=== PATIENT | female | born 1995 | race American Indian/Alaskan Native ===

== ENCOUNTER 2017-03-16 14:51 | Emergency (ER) | payer MEDICAID ==
[2017-03-16] MEDS ORDERED: DILAUDID IV ONE (15:38)
--- NOTE | 2017-03-16 15:45 | Emergency Department Report ---
HPI - General Chief Complaint: High BP Time Seen by Provider: 03/16/17 15:27 - HPI HPI: This is a 21-year-old [place]er female presents to the emergency department via EMS from home with complaint of a right-sided headache has been going on since last night and some dizziness that has been going on since yesterday morning. Patient was here last week for a heavier than usual menstrual cycle and at that time was found to have elevated blood pressure. She does have history of preeclampsia and had a back in November of this year. She is on methyldopa for blood pressure. After the visit, she was given a work note to return starting on the 10th, yesterday. She went to work and began feeling dizzy to the point where she had trouble doing her job. She was on her way home and said she started feeling better once she returned home she began having the headache and a return of the dizziness. She denies any vision change , slurred speech or any neurological deficits. She has a past medical history of hypertension. She does not have a primary care physician. Recent travel or sick contacts at home. ED Past Medical Hx - Past Medical History Hx Hypertension: Yes (PIH) Additional medical history: anemia - Surgical History Additional Surgical History: C/S x2 - Social History Smoking Status: Never Smoker Substance Use Type: None - Medications Home Medications: Home Medications Medication Instructions Recorded Confirmed Last Taken Type Methyldopa [Aldomet] 500 mg PO BID #20 tab 03/10/17 Unknown Rx traMADol [Ultram 50 MG tab] 50 mg PO Q6HR PRN #20 tablet 03/10/17 Unknown Rx Amlodipine Besylate [Norvasc] 5 mg PO QDAY #20 tablet 03/16/17 Unknown Rx Ferrous Sulfate [Feosol] 325 mg PO BID #40 tablet 03/16/17 Unknown Rx ED Review of Systems ROS: Stated complaint: HYPERTENSION Other details as noted in HPI Comment: All other systems reviewed and negative Constitutional: denies: chills, fever Eyes: denies: eye pain, eye discharge, vision change ENT: denies: ear pain, throat pain Respiratory: denies: cough, shortness of breath, wheezing Cardiovascular: denies: chest pain, palpitations Gastrointestinal: denies: abdominal pain, nausea, diarrhea Genitourinary: denies: urgency, dysuria, discharge Musculoskeletal: denies: back pain, joint swelling, arthralgia Skin: denies: rash, lesions Neurological: headache, other (dizziness) Physical Exam - Physical Exam Vital Signs: Vital Signs 03/16/17 03/16/17 03/16/17 15:10 15:15 15:26 Temperature 98.7 F Pulse Rate 74 72 Respiratory 13 16 Rate Blood Pressure 174/92 172/77 O2 Sat by Pulse 100 100 100 Oximetry 03/16/17 15:31 Temperature Pulse Rate 73 Respiratory 21 Rate Blood Pressure 157/69 O2 Sat by Pulse 100 Oximetry Physical Exam: GENERAL: The patient is well-developed well-nourished. HENT: Normocephalic. Atraumatic. Patient has moist mucous membranes. EYES: Extraocular motions are intact. Pupils equal reactive to light bilaterally. No nystagmus. NECK: Supple. Trachea is midline. CHEST/LUNGS: Clear to auscultation. There is no respiratory distress noted. HEART/CARDIOVASCULAR: Regular. There is no tachycardia. There is no gallop rub or murmur. ABDOMEN: Abdomen is soft, nontender. Patient has normal bowel sounds. There is no abdominal distention. Obese habitus. SKIN: Skin is warm and dry. NEURO: The patient is awake, alert, and oriented. The patient is cooperative. The patient has no focal neurologic deficits. The patient has normal speech. Cranial nerves II-12 grossly intact. No pronator drift. No dysmetria. MUSCULOSKELETAL: There is no tenderness or deformity. There is no limitation range of motion. There is no evidence of acute injury. ED Course Vital Signs 03/16/17 03/16/17 03/16/17 15:10 15:15 15:26 Temperature 98.7 F Pulse Rate 74 72 Respiratory 13 16 Rate Blood Pressure 174/92 172/77 O2 Sat by Pulse 100 100 100 Oximetry 03/16/17 15:31 Temperature Pulse Rate 73 Respiratory 21 Rate Blood Pressure 157/69 O2 Sat by Pulse 100 Oximetry ED Medical Decision Making - Lab Data Result diagrams: 03/16/17 15:53 03/16/17 15:53 - EKG Data -: EKG Interpreted by Ct EKG shows normal: sinus rhythm, axis, intervals, QRS complexes, ST-T waves ( flattened or borderline inverted T waves throughout the lateral and inferior leads) Rate: normal - EKG Data When compared to previous EKG there are: previous EKG unavailable Interpretation: other (sinus rhythm, no ST elevation NV, flattening or borderline inverted T waves to the lateral and inferior leads) - Radiology Data Radiology results: report reviewed CT of the head does not show any acute intracranial process including no ischemia, shift, mass, bleeding or skull fracture. - Medical Decision Making This patient presented with elevated blood pressure that had reached a systolic of about 200 with EMS. She presents with a right-sided headache that started yesterday as well as some nonspecific dizziness. Physical examination she does not have any focal, motor or sensory deficits in her cranial nerves are intact. CT of the head was done and does not show any bleed, shift, mass or any acute process. Patient's labs are mostly unremarkable except for anemia with hemoglobin of 8.5. She was here 6 days ago for heavy menstrual bleeding and she did not have a CBC at that time so it is unknown whether this hemoglobin is chronic for her or acutely low. If it is a bit changed and it is possible patient's symptoms are secondary to symptomatic anemia. However the patient was given some pain medication and blood pressure medication and upon reevaluation she says she is feeling better. She does not appear pale. Vital signs are stable and cleared him being afebrile and no tachycardia, tachypnea or hypoxia. At this point the patient appears safe for discharge home at this time. She will follow up with a primary care physician to discuss whether or not to continue the methyldopa. However I will start her on a medium dose of Norvasc and iron supplementation. She understands that the iron pills can make her constipated. She will return to the ER with any worsening of her symptoms or any acute distress. Discharge instructions given within the emergency department and all questions have been answered. - Differential Diagnosis anemia, tension headache, migraine, brain bleed Critical Care Time: No Critical care attestation.: If time is entered above; I have spent that time in minutes in the direct care of this critically ill patient, excluding procedure time. ED Disposition Clinical Impression: Dizziness Hypertension Qualifiers: Hypertension type: essential hypertension Qualified Code(s): I10 - Essential ( primary) hypertension Headache Qualifiers: Headache type: unspecified Headache chronicity pattern: unspecified pattern Intractability: not intractable Qualified Code(s): R51 - Headache Anemia Qualifiers: Anemia type: iron deficiency Iron deficiency anemia type: chronic blood loss Qualified Code(s): D50.0 - Iron deficiency anemia secondary to blood loss ( chronic) Disposition: DC-01 TO HOME OR SELFCARE Is pt being admited?: No Condition: Stable Instructions: Iron Rich Diet (ED), Acute Headache (ED), Hypertension (ED), Dizziness (ED), Anemia (ED) Additional Instructions: Please follow up with a primary care doctor in the next few days. Return to the emergency Department with any worsening of your symptoms are any acute distress. Try and stay away from foods that are high in salt and caffeinated products to help with your blood pressure. Keep a blood pressure log. I have started you on a blood pressure medication: Norvasc/amlodipine that is taken once daily, usually in the morning. Return to the emergency Department with any worsening of your symptoms or any acute distress. Prescriptions: Amlodipine Besylate [Norvasc] 5 mg PO QDAY #20 tablet Ferrous Sulfate [Feosol] 325 mg PO BID #40 tablet Referrals: PRIMARY MD MARCY [Primary Care Provider] - 3-5 Days MARC VILLARREAL MD [Staff Physician] - 3-5 Days [facility] [Outside] - 3-5 Days Time of Disposition: 18:04
[2017-03-16 16:24] LABS: Basophils % (Auto) 0.6 % (0.0-1.8); Eosinophils % (Auto) 3.9 % (0.0-4.3); Hematocrit 26.7 % (30.3-42.9); Hemoglobin 8.6 gm/dl (10.1-14.3); Mean Corpuscular HGB Conc 32 % (30-34); Mean Corpuscular Volume 74 fl (79-97); Platelet Count 270 K/mm3 (140-440); Red Blood Count 3.61 M/mm3 (3.65-5.03)
[2017-03-16 16:25] LABS: Mean Corpuscular Hemoglobin 24 pg (28-32)
[2017-03-16 16:47] LABS: Anion Gap 13 mmol/L; BUN/Creatinine Ratio 16; Blood Urea Nitrogen 8 mg/dL (7-17); Calcium 9.3 mg/dL (8.4-10.2); Carbon Dioxide 29 mmol/L (22-30); Chloride 101.9 mmol/L (98-107); Glucose 91 mg/dL (65-100); Potassium 4.1 mmol/L (3.6-5.0); Sodium 140 mmol/L (137-145)
[2017-03-16] MEDS ORDERED: APRESOLINE IV ONE (17:15)
--- NOTE | 2017-03-16 17:28 | Cat Scan Report ---
FINAL REPORT EXAM: CT HEAD/BRAIN WO CON HISTORY: HOPE TECHNIQUE: Standard unenhanced CT of the head at 5.0 millimeter axial increments PRIORS: None. FINDINGS: The ventricular system is normal in size and configuration. There is no evidence for parenchymal volume loss. There is no evidence for mass lesion, mass effect, midline shift, acute intracranial hemorrhage, or acute ischemia/ infarction. Visualized paranasal sinuses are clear. IMPRESSION: Negative CT of the head. No acute intracranial process noted.
[2017-03-16 18:06] VITALS: BP 146/69
== END 2017-03-16 18:19 | disposition home or self-care (01) ==
LOC: ED 14:51
DX: R42 Dizziness and giddiness (principal); I10 Essential (primary) hypertension; R51 Headache; D50.0 Iron deficiency anemia secondary to blood loss (chronic); D64.9 Anemia, unspecified
CPT/HCPCS: 36415; 70450; 80048; 84443; 84703; 85025; 93005; 93010; 96374; 96375; 99284; J0360; J1170

== ENCOUNTER 2017-08-08 17:43 | Emergency (ER) | payer MEDICAID ==
[2017-08-08] MEDS ORDERED: TYLENOL PO ONE (18:09)
--- NOTE | 2017-08-08 18:41 | Emergency Department Report ---
ED Headache HPI - General Chief Complaint: Headache Stated Complaint: CHEST PAIN Time Seen by Provider: 08/08/17 18:13 Source: patient, old records Exam Limitations: no limitations - History of Present Illness Initial Comments: 22-year-old female with a past medical history of hypertension, anemia, and preeclampsia with 2 previous pregnancies presents to the hospital concerned she might be preeclamptic currently. She is currently 15 weeks . She complains of a frontal headache that is constant since yesterday a rate of 9/10 in intensity. "Mild blurred vision" reported. No present nausea, vomiting, focal weakness, or numbness. Patient also has had upper mid chest pain described as something sitting on her chest with shortness of breath. Patient is currently on medications for hypertension. Patient also was her baby checked. Her COMPUTER ENGINEERING TECHNOLOGIST doctor is Dr. Austin galvan Allergies/Adverse Reactions: Allergies No Known Allergies Allergy (Unverified 03/10/17 12:31) Home Medications: Ambulatory Orders Methyldopa [Aldomet] 500 mg PO BID #20 tab 03/10/17 traMADol [Ultram 50 MG tab] 50 mg PO Q6HR PRN #20 tablet 03/10/17 Amlodipine Besylate [Norvasc] 5 mg PO QDAY #20 tablet 03/16/17 Ferrous Sulfate [Feosol] 325 mg PO BID #40 tablet 03/16/17 ED Review of Systems ROS: Stated complaint: CHEST PAIN Other details as noted in HPI Comment: All other systems reviewed and negative ED Past Medical Hx - Past Medical History Hx Hypertension: Yes (PIH) Additional medical history: anemia - Surgical History Additional Surgical History: C/S x2 - Social History Smoking Status: Unknown if ever smoked Substance Use Type: None - Medications Home Medications: Home Medications Medication Instructions Recorded Confirmed Last Taken Type Methyldopa [Aldomet] 500 mg PO BID #20 tab 03/10/17 Unknown Rx traMADol [Ultram 50 MG tab] 50 mg PO Q6HR PRN #20 tablet 03/10/17 Unknown Rx Amlodipine Besylate [Norvasc] 5 mg PO QDAY #20 tablet 03/16/17 Unknown Rx Ferrous Sulfate [Feosol] 325 mg PO BID #40 tablet 03/16/17 Unknown Rx ED Physical Exam - General Limitations: No Limitations - Other Other exam information: General: No limitations, patient is alert in no acute distress Head exam: Atraumatic, normocephalic Eyes exam: Normal appearance, ENT: Moist mucous membrane, normal oropharynx Neck exam: Normal inspection, full range of motion, no meningismus nontender Respiratory exam: Clear to auscultation bilateral, no wheezes, rales, crackles Cardiovascular: Normal rate and rhythm, normal heart sounds chest wall nontender Abdomen: Soft, nondistended, and nontender, with normal bowel sounds, no rebound, or guarding Extremity: Full range of motion normal inspection no deformity Back: Normal Inspection, full range of motion, no tenderness Neurologic: Alert, oriented x3, cranial nerves intact, no motor or sensory deficit Psychiatric: normal affect, normal mood Skin: Warm, dry, intact ED Course Vital Signs 08/08/17 08/08/17 08/08/17 17:49 17:57 18:00 Temperature 97.8 F Pulse Rate 78 83 Respiratory 14 19 15 Rate Blood Pressure 143/83 140/81 Blood Pressure 143/83 [Left] O2 Sat by Pulse 100 100 Oximetry 08/08/17 08/08/17 08/08/17 18:15 18:18 18:30 Temperature Pulse Rate 88 90 Respiratory 23 19 17 Rate Blood Pressure 145/80 127/73 Blood Pressure [Left] O2 Sat by Pulse 100 100 100 Oximetry 08/08/17 08/08/17 08/08/17 18:45 19:00 19:05 Temperature 98.8 F Pulse Rate 81 88 87 Respiratory 20 13 16 Rate Blood Pressure 147/64 132/74 Blood Pressure 132/74 [Left] O2 Sat by Pulse 100 100 100 Oximetry 08/08/17 08/08/17 08/08/17 19:16 19:30 20:10 Temperature Pulse Rate 89 81 Respiratory 22 18 Rate Blood Pressure 141/64 148/85 148/85 Blood Pressure [Left] O2 Sat by Pulse 100 100 99 Oximetry 08/08/17 08/08/17 08/08/17 20:15 20:30 20:46 Temperature Pulse Rate 92 H 81 83 Respiratory 17 12 21 Rate Blood Pressure 138/94 151/71 146/67 Blood Pressure [Left] O2 Sat by Pulse 100 100 100 Oximetry 08/08/17 08/08/17 08/08/17 21:00 21:16 21:48 Temperature Pulse Rate 84 94 H 101 H Respiratory 18 16 Rate Blood Pressure 157/78 150/85 157/78 Blood Pressure [Left] O2 Sat by Pulse 100 100 Oximetry 08/08/17 08/08/17 08/08/17 22:00 22:16 22:30 Temperature Pulse Rate 93 H 87 92 H Respiratory 19 18 16 Rate Blood Pressure 107/66 137/64 137/64 Blood Pressure [Left] O2 Sat by Pulse 100 100 100 Oximetry 08/08/17 08/08/17 08/08/17 22:46 23:00 23:16 Temperature Pulse Rate 93 H 79 91 H Respiratory 17 11 L 13 Rate Blood Pressure 137/64 137/64 136/63 Blood Pressure [Left] O2 Sat by Pulse 100 100 99 Oximetry 08/08/17 23:22 Temperature Pulse Rate 89 Respiratory Rate Blood Pressure 136/63 Blood Pressure [Left] O2 Sat by Pulse Oximetry - Reevaluation(s) Reevaluation #1: 08/08/17 23:31 Patient feeling better. Tylenol helped with headache. No distress noted. Tolerating by mouth intake and prefers to drink fluids instead of waiting for her IV fluids to be complete - Consultations Consultation #1: 08/08/17 22:[address] Moore on-call physician for [facility]. Pt will be provided copy of labs/ct/xray report to take for follow up. ED Medical Decision Making - Lab Data Result diagrams: 08/08/17 18:38 08/08/17 18:38 Lab Results 08/08/17 08/08/17 08/08/17 Range/Units 18:38 18:38 18:38 WBC 7.9 (4.5-11.0) K/mm3 RBC 3.72 (3.65-5.03) M/mm3 Hgb 7.9 L (10.1-14.3) gm/dl Hct 24.7 L (30.3-42.9) % MCV 66 L (79-97) fl MCH 21 L (28-32) pg MCHC 32 (30-34) % RDW 19.0 H (13.2-15.2) % Plt Count 281 (140-440) K/mm3 Lymph % (Auto) 24.2 (13.4-35.0) % Victoria % (Auto) 5.1 (0.0-7.3) % Eos % (Auto) 1.6 (0.0-4.3) % Baso % (Auto) 0.4 (0.0-1.8) % Lymph # 1.9 (1.2-5.4) K/mm3 Victoria # 0.4 (0.0-0.8) K/mm3 Eos # 0.1 (0.0-0.4) K/mm3 Baso # 0.0 (0.0-0.1) K/mm3 Seg Neutrophils % 68.7 (40.0-70.0) % Seg Neutrophils # 5.5 (1.8-7.7) K/mm3 PT 12.9 (12.2-14.9) Sec. INR 0.93 (0.87-1.13) APTT 28.4 (24.2-36.6) Sec. D-Dimer 348.41 H (0-234) ng/mlDDU Sodium 134 L (137-145) mmol/L Potassium 3.7 (3.6-5.0) mmol/L Chloride 100.2 (98-107) mmol/L Carbon Dioxide 22 (22-30) mmol/L Anion Gap 16 mmol/L BUN 5 L (7-17) mg/dL Creatinine 0.4 L (0.7-1.2) mg/dL Estimated GFR > 60 ml/min BUN/Creatinine Ratio 13 % Glucose 84 (65-100) mg/dL Calcium 9.0 (8.4-10.2) mg/dL Total Bilirubin 0.20 (0.1-1.2) mg/dL AST 11 (5-40) units/L ALT 8 (7-56) units/L Alkaline Phosphatase 86 (35-129) units/L Total Creatine Kinase (30-135) units/L CK-MB (CK-2) (0.0-4.0) ng/mL CK-MB (CK-2) Rel Index (0-4) Troponin T (0.00-0.029) ng/mL NT-Pro-B Natriuret Pep (0-450) pg/mL Total Protein 6.6 (6.3-8.2) g/dL Albumin 3.4 L (3.9-5) g/dL Albumin/Globulin Ratio 1.1 % Urine Color (Yellow) Urine Turbidity (Clear) Urine pH (5.0-7.0) Ur Specific Valley (1.003-1.030) Urine Protein (Negative) mg/dL Urine Glucose (UA) (Negative) mg/dL Urine Ketones (Negative) mg/dL Urine Blood (Negative) Urine Nitrite (Negative) Urine Bilirubin (Negative) Urine Urobilinogen (<2.0) mg/dL Ur Leukocyte Esterase (Negative) Urine WBC (Auto) (0.0-6.0) /HPF Urine RBC (Auto) (0.0-6.0) /HPF U Epithel Cells (Auto) (0-13.0) /HPF Urine Mucus /HPF 08/08/17 08/08/17 Range/Units 18:38 21:34 WBC (4.5-11.0) K/mm3 RBC (3.65-5.03) M/mm3 Hgb (10.1-14.3) gm/dl Hct (30.3-42.9) % MCV (79-97) fl MCH (28-32) pg MCHC (30-34) % RDW (13.2-15.2) % Plt Count (140-440) K/mm3 Lymph % (Auto) (13.4-35.0) % Victoria % (Auto) (0.0-7.3) % Eos % (Auto) (0.0-4.3) % Baso % (Auto) (0.0-1.8) % Lymph # (1.2-5.4) K/mm3 Victoria # (0.0-0.8) K/mm3 Eos # (0.0-0.4) K/mm3 Baso # (0.0-0.1) K/mm3 Seg Neutrophils % (40.0-70.0) % Seg Neutrophils # (1.8-7.7) K/mm3 PT (12.2-14.9) Sec. INR (0.87-1.13) APTT (24.2-36.6) Sec. D-Dimer (0-234) ng/mlDDU Sodium (137-145) mmol/L Potassium (3.6-5.0) mmol/L Chloride (98-107) mmol/L Carbon Dioxide (22-30) mmol/L Anion Gap mmol/L BUN (7-17) mg/dL Creatinine (0.7-1.2) mg/dL Estimated GFR ml/min BUN/Creatinine Ratio % Glucose (65-100) mg/dL Calcium (8.4-10.2) mg/dL Total Bilirubin (0.1-1.2) mg/dL AST (5-40) units/L ALT (7-56) units/L Alkaline Phosphatase (35-129) units/L Total Creatine Kinase 55 (30-135) units/L CK-MB (CK-2) < 1.0 (0.0-4.0) ng/mL CK-MB (CK-2) Rel Index 1.8 (0-4) Troponin T < 0.010 (0.00-0.029) ng/mL NT-Pro-B Natriuret Pep 166.7 (0-450) pg/mL Total Protein (6.3-8.2) g/dL Albumin (3.9-5) g/dL Albumin/Globulin Ratio % Urine Color Yellow (Yellow) Urine Turbidity Clear (Clear) Urine pH 5.0 (5.0-7.0) Ur Specific Valley 1.060 H (1.003-1.030) Urine Protein <15 mg/dl (Negative) mg/dL Urine Glucose (UA) Neg (Negative) mg/dL Urine Ketones Tr (Negative) mg/dL Urine Blood Neg (Negative) Urine Nitrite Neg (Negative) Urine Bilirubin Neg (Negative) Urine Urobilinogen 2.0 (<2.0) mg/dL Ur Leukocyte Esterase Neg (Negative) Urine WBC (Auto) < 1.0 (0.0-6.0) /HPF Urine RBC (Auto) 3.0 (0.0-6.0) /HPF U Epithel Cells (Auto) 4.0 (0-13.0) /HPF Urine Mucus Few /HPF - EKG Data -: EKG Interpreted by Oh EKG shows normal: sinus rhythm, axis (qrs 50), QRS complexes (qrsd .088s), ST-T waves (no stemi/t inv) Rate: normal (92) - EKG Data When compared to previous EKG there are: previous EKG unavailable - Radiology Data Radiology results: report reviewed read by radiologist ct angio chest; IMPRESSION: No evidence of pulmonary embolus. Mild splenomegaly. The heart appears to be mildly diffusely enlarged. No evidence of pericardial effusion. cxr IMPRESSION: Heart size upper normal. No other abnormality is seen - Medical Decision Making Patient likely having dyspnea in but also could be mildly exacerbated secondary to anemia. Patient states she cannot tolerate iron tabs because they make her vomit. Patient counseled on trying to get iron from her diet. Patient states she recently prescribed antibiotics for UTI but did not tolerate them due to vomiting. No signs of UTI currently. High specific gravity in urine indicates dehydration. He states she's been eating and drinking appropriately at but had decreased by mouth intake today. CaSE discussed with patient's COMPUTER ENGINEERING TECHNOLOGIST group. She'll be provided a copy of the labs and imaging studies for follow-up - Differential Diagnosis htn, levi, ich, pe, dyspnea in , Critical Care Time: No Critical care attestation.: If time is entered above; I have spent that time in minutes in the direct care of this critically ill patient, excluding procedure time. ED Disposition Clinical Impression: HTN (hypertension), , Headache, Dehydration, Anemia, Dyspnea Disposition: DC-01 TO HOME OR SELFCARE Is pt being admited?: No Does the pt Need Aspirin: No Condition: Stable Instructions: Hypertension (ED), Iron Rich Diet (ED), (ED), Iron Deficiency Anemia (ED) Additional Instructions: Take a copy of the labs and imaging studies to your doctor for follow-up. Try to increase iron in your diet or take vitamins including iron. Return if symptoms worsen is indicated by your discharge instructions. Continue to drink plenty of water. Referrals: your, MARKETING OPERATIONS CONSULTANT [Other] - 2-3 Days Time of Disposition: 23:33
[2017-08-08 18:52] LABS: Basophils % (Auto) 0.4 % (0.0-1.8); Eosinophils # (Auto) 0.1 K/mm3 (0.0-0.4); Eosinophils % (Auto) 1.6 % (0.0-4.3); Hematocrit 24.7 % (30.3-42.9); Hemoglobin 7.9 gm/dl (10.1-14.3); Lymphocytes # (Auto) 1.9 K/mm3 (1.2-5.4); Lymphocytes % (Auto) 24.2 % (13.4-35.0); Mean Corpuscular HGB Conc 32 % (30-34); Monocytes # (Auto) 0.4 K/mm3 (0.0-0.8); Monocytes % (Auto) 5.1 % (0.0-7.3); Platelet Count 281 K/mm3 (140-440); Red Blood Count 3.72 M/mm3 (3.65-5.03)
[2017-08-08 18:55] LABS: Mean Corpuscular Hemoglobin 21 pg (28-32); Mean Corpuscular Volume 66 fl (79-97)
[2017-08-08 19:04] LABS: INR 0.93 (0.87-1.13)
[2017-08-08 19:05] LABS: Partial Thromboplastin Time 28.4 Sec. (24.2-36.6)
[2017-08-08 19:13] LABS: Creatine Kinase MB < 1.0 ng/mL (0.0-4.0)
[2017-08-08 19:22] LABS: Alanine Aminotransferase 8 units/L (7-56); Albumin 3.4 g/dL (3.9-5); BUN/Creatinine Ratio 13; Blood Urea Nitrogen 5 mg/dL (7-17); Hemolysis Index 0
--- NOTE | 2017-08-08 20:39 | XRay Report ---
FINAL REPORT PROCEDURE: Portable AP chest x-ray TECHNIQUE: Chest radiograph portable AP view. CPT 28142 HISTORY: sob, cp COMPARISON: No prior studies are available for comparison. FINDINGS: The heart is magnified due to projection probably upper normal size. The pulmonary vasculature appears normal. No evidence of pulmonary edema pleural effusion infiltrate or mass. No acute bony abnormalities are seen. IMPRESSION: Heart size upper normal. No other abnormality is seen..
--- NOTE | 2017-08-08 20:44 | Cat Scan Report ---
FINAL REPORT PROCEDURE: CT ANGIO CHEST TECHNIQUE: Computerized tomographic angiography of the chest was performed during the IV injection of iodinated nonionic contrast including image processing. The image data was postprocessed using 2-dimensional multiplanar reformatted (MPR) and 3-dimensional (MIP and/or volume rendered) techniques. HISTORY: cp, sob, 15weeks COMPARISON: No prior studies are available for comparison. FINDINGS: Pulmonary outflow tract, right and left main pulmonary arteries and their proximal branches: Clear, no filling defects seen to suggest pulmonary embolus. Pericardium: No evidence of pericardial effusion. The heart appears mildly diffusely enlarged. Thoracic aorta: No evidence of aneurysmal dilatation or dissection. Coronary arteries: Are unremarkable. Mediastinum and hilar regions: Nonspecific subcentimeter lymph nodes are visualized. No pathologically enlarged lymph nodes or masses are identified. Soft tissue dense material is seen filling the anterior mediastinum although conforming to the contours of the anterior mediastinum consistent with residual thymic tissue. Lung Thrasher: Clear Upper abdomen: Spleen is mildly enlarged measuring 13.8 centimeter otherwise is unremarkable. Upper abdomen is otherwise unremarkable. Other: No acute bony abnormalities are seen. IMPRESSION: No evidence of pulmonary embolus. Mild splenomegaly. The heart appears to be mildly diffusely enlarged. No evidence of pericardial effusion.
[2017-08-08 22:03] LABS: Bilirubin,Urine NEG (Negative); Blood,Urine NEG (Negative); Color,Urine Yellow (Yellow); Mucus,Urine FEW /HPF; Protein,Urine <15 mg/dL mg/dL (Negative); WBC,Urine < 1.0 /HPF (0.0-6.0)
[2017-08-08] MEDS ORDERED: NACL 0.9% 1000 ML 1,000 ML IV ONE (22:20)
[2017-08-08] MEDS ORDERED: ALDOMET PO ONE (23:00)
[2017-08-08 23:24] VITALS: BP 136/63
== END 2017-08-09 00:11 | disposition home or self-care (01) ==
LOC: ED 17:43
DX: O16.2 Unspecified maternal hypertension, second trimester (principal); O99.012 Anemia complicating pregnancy, second trimester; O99.512 Diseases of the respiratory system complicating pregnancy, second trimester; Z3A.15 15 weeks gestation of pregnancy
CPT/HCPCS: 36415; 71045; 71275; 80053; 81001; 82550; 82553; 83880; 84484; 85025; 85379; 85610; 85730; 96360; 99285; J7030; Q9967

== ENCOUNTER 2017-09-26 20:44 | Outpatient (CLI) | payer MEDICAID ==
[2017-09-26 22:42] LABS: Bacteria,Urine 3+ /HPF (Negative); Bilirubin,Urine NEG (Negative); Blood,Urine NEG (Negative); Color,Urine Yellow (Yellow); Mucus,Urine 1+ /HPF
[2017-09-26 23:00] VITALS: BP 128/62
[2017-09-26 23:38] LABS: Hematocrit 22.9 % (30.3-42.9); Hemoglobin 7.1 gm/dl (10.1-14.3); Mean Corpuscular HGB Conc 31 % (30-34); Platelet Count 255 K/mm3 (140-440); Red Blood Count 3.38 M/mm3 (3.65-5.03); Red Cell Distribution Width 17.2 % (13.2-15.2)
[2017-09-26 23:39] LABS: Mean Corpuscular Hemoglobin 21 pg (28-32); Mean Corpuscular Volume 68 fl (79-97)
[2017-09-27 00:02] LABS: Alanine Aminotransferase < 5 units/L (7-56)
== END 2017-09-27 01:15 | disposition home or self-care (01) ==
LOC: EDSTATUS 21:32 → TRG 21:35
PROVIDERS: ATTEND Obstetrics & Gynecology
DX: O26.892 Other specified pregnancy related conditions, second trimester (principal); R51 Headache; Z3A.22 22 weeks gestation of pregnancy
CPT/HCPCS: 36415; 59025; 81001; 82565; 83615; 84450; 84460; 84550; 85027